=== PATIENT | female | born 1945 | race African-American/Black ===

== ENCOUNTER 2024-01-22 11:51 | Day surgery (SDC) | payer OTHER ==
[2024-01-16 14:05] VITALS: BMI 24.5
[2024-01-22 13:22] VITALS: BP 212/111; PULSE 58; RESP 18; TEMP 97.5
== END 2024-01-22 13:15 ==
LOC: FASU-ENDO 11:51
PROVIDERS: ATTEND Internal Medicine Gastroenterology
PROC: 0DJ08ZZ Inspection of Upper Intestinal Tract, Via Natural or Artificial Opening Endoscopic (ICD-10-PCS; principal; 2024-01-22)
DX: Z53.09 Procedure and treatment not carried out because of other contraindication (principal)

== ENCOUNTER 2024-02-05 11:49 | Day surgery (SDC) | payer OTHER ==
[2024-02-03 14:22] VITALS: BMI 24.5
[2024-02-05 13:17] VITALS: RESP 19; TEMP 96.9
[2024-02-05 13:18] VITALS: BP 188/78; PULSE 64
== END 2024-02-05 13:15 | disposition home or self-care (01) ==
LOC: FASU-ENDO 11:49
PROVIDERS: ATTEND Internal Medicine Gastroenterology
PROC: 0DJ08ZZ Inspection of Upper Intestinal Tract, Via Natural or Artificial Opening Endoscopic (ICD-10-PCS; principal; 2024-02-05)
DX: Z53.8 Procedure and treatment not carried out for other reasons (principal); D64.9 Anemia, unspecified

== ENCOUNTER 2024-02-12 12:43 | Day surgery (SDC) | payer OTHER ==
[2024-02-12] MEDS ORDERED: LIDOCAINE HCL/PF 2% SDV 5ML VIAL ONE (13:01)
[2024-02-12 13:04] VITALS: BMI 24.5
[2024-02-12 14:09] VITALS: RESP 17; TEMP 97.7
[2024-02-12 14:12] VITALS: BP 127/67; PULSE 61
== END 2024-02-12 14:24 ==
LOC: FASU-ENDO 12:43
PROVIDERS: ATTEND Internal Medicine Gastroenterology
PROC: 0DB68ZX Excision of Stomach, Via Natural or Artificial Opening Endoscopic, Diagnostic (ICD-10-PCS; 2024-02-12)
PROC: 0DB48ZX Excision of Esophagogastric Junction, Via Natural or Artificial Opening Endoscopic, Diagnostic (ICD-10-PCS; principal; 2024-02-12 13:22)
DX: D64.9 Anemia, unspecified (principal); K29.50 Unspecified chronic gastritis without bleeding; K44.9 Diaphragmatic hernia without obstruction or gangrene
CPT/HCPCS: 88305-TC; 88342-TC